=== PATIENT | female | born 1955 ===

== ENCOUNTER 2022-02-21 16:14 | Emergency (ER) | payer MEDICARE, SELFPAY ==
[2022-02-21] VITALS (16 sets, daily range): BP systolic 115–171; BP diastolic 67–121; PULSE 67–78; RESP 12–20; TEMP 36.6; O2SAT 97–100
--- NOTE | ~2022-02-21 | XR_ITS ---
EXAMINATION: XR chest 1V portable Exam Date/Time: 02/21/2022 16:20 CDT CLINICAL HISTORY: suspected CVA Comparison: None available. RESULT: Lines, tubes, and devices: None. Lungs and pleura: Senescent changes, otherwise clear. Cardiomediastinal silhouette: Possible hiatal hernia, otherwise unremarkable cardiomediastinal silho uette. Other: No acute osseous or upper abdominal finding. IMPRESSION: No acute cardiopulmonary process Reviewed, dictated and finalized at location K.
--- NOTE | ~2022-02-21 | CT_ITS ---
EXAMINATION: CT brain wo con DATE: 02/21/2022 16:22 INDICATION: suspected CVA seen for hemorrhagic stroke at outside institution on February 07, that appar ently worsened on the . Recent new dysarthria and right-sided symptoms. TECHNIQUE: Computed tomography (CT) of the head was performed without intravenous contrast. The mA wa s adjusted according to patient size. Iterative reconstruction technique was employed. The dose-lengt h product was 605.33 mGy-cm. COMPARISON: None FINDINGS: Ill-defined hyperdensity extending from the left thalamus superiorly along lateral ventricle. This hy podensity measures approximately 50 6HU. No extra-axial fluid collection. No hydrocephalus, mass, or herniation. Hypodensity extending from the left cerebral peduncle into the left thalamus and surrounding the hype rdensities described above. Unremarkable dural venous sinus attenuation. No acute osseous abnormality. The aerated spaces are clear. Mild atrophy and chronic white matter change. Intracranial arterial calcifications. IMPRESSION: Findings may represent subacute left thalamic hemorrhage with surrounding edema. No CT evidence of ac adenike large vessel infarct. Subtle extension of hemorrhage or edema/infarct is difficult to exclude wit hout prior imaging. Results discussed with Dr. Lebron by Dr. Scott telephonically at 4:20 PM on 02/21/2022. Reviewed, dictated and finalized at location K. IMPRESSION: Findings may represent subacute left thalamic hemorrhage with surrounding edema . No CT evidence of acute large vessel infarct. Subtle extension of hemorrhage or edema/infarct is difficult to exclude without prior imaging. Results discussed with Dr. Lebron by Dr. Scott telephonically at 4:20 PM on 2021.
--- NOTE | 2022-02-21 16:16 | ECG_ITS ---
Measurements Intervals [place] Rate: 70 P: 30 NC: 186 QRS: 1 QRSD: 121 T: 70 QT: 410 QTc: 444 Interpretive Statements SINUS RHYTHM INCOMPLETE LEFT BUNDLE BRANCH BLOCK CONSIDER INFERIOR INFARCT, AGE INDETERMINATE BASELINE ARTIFACT- I, III, AVR, AVL, AVF, V1-V2, V4-V6 ABNORMAL ECG Electronically Signed On 02-21-2022 16:36:25 CDT by Kam Gutierrez D.O.
--- NOTE | 2022-02-21 16:40 | ED.NEUROSD ---
HPI - Neuro Symptoms/Deficit General Chief Complaint: Suspected CVA Stated Complaint: slurred speech, increased R side weakness Time Seen by Provider: 02/21/22 16:33 Source: patient, EMS and RN notes reviewed Mode of arrival: EMS Limitations: no limitations History of Present Illness HPI Narrative: 66 years old -[place] female came to the emergency room from [facility] because of strokelike symptoms in the form of increased slurred speech and increased weakness of the right upper and right lower extremity. 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 Last time patient was doing okay at 2 PM today. Patient received muscle relaxant for muscle pain, within 30 minutes started having slurred speech and increased weakness of the right upper and right lower extremity. She denies any fever, chills, nausea, vomiting, chest pain, shortness of breath, headache. Related Data Home Medications Medication Instructions Recorded Confirmed amlodipine 10 mg PO DAILY 02/16/22 02/16/22 atorvastatin 20 mg PO DAILY 02/16/22 02/16/22 levothyroxine 100 mcg PO DAILY 02/16/22 02/16/22 levothyroxine 150 mcg PO DAILY 02/16/22 02/16/22 losartan 100 mg PO DAILY 02/16/22 02/16/22 potassium chloride 10 meq PO DAILY 02/16/22 02/16/22 Allergies Allergy/AdvReac Type Severity Reaction Status Date / Time ciprofloxacin [From Cipro] Allergy Swelling Verified 02/16/22 17:06 lisinopril Allergy Swelling Verified 02/16/22 17:06 quinapril Allergy Swelling Verified 02/16/22 17:06 Review of Systems Review of Systems: All systems reviewed & are unremarkable except as noted in HPI and below PMFSH Past Medical History Medical History Gastroesophageal reflux disease Hypertension associated with diabetes Hypothyroidism Obesity (BMI 35.0-39.9 without comorbidity) Obstructive sleep apnea Peptic ulcer disease Type 2 diabetes mellitus Surgical History Surgical History H/O gastric bypass Family History Family History Mother Diabetes mellitus Father Diabetes mellitus Mother Hypertension Sibling Hypertension Social History Social History Social History: patient lives alone in a 1 level house with a ramp entrance. Patient was independent without device. She has friends and family who can assist her intermittently Smoking status: Never smoker Exam Narrative: General appearance: Well-developed, well-nourished Skin: Normal color Head: Normocephalic, nontraumatic Eyes: Clear conjunctiva ENT: Oropharynx normal, ears normal, nose normal, left facial drooping Neck: Supple, nontender Chest and respiratory: Airway patent, no respiratory distress, no accessory muscle use Heart: Regular rate/rhythm Abdomen: Soft, nontender, no organomegaly, quiet bowel sounds Vascular: Normal peripheral pulses, normal capillary refill. Musculoskeletal: Weakness right upper and right lower extremity, Neurologic: Alert and oriented ?3, weakness right upper and right lower extremity, left facial drooping, slurred speech Course Course Emergency Course: Patient had history of hemorrhagic stroke with right hemiplegia February 07, we do not have old CAT scan for comparison, CAT scan today showed findings may represent subacute left thalamic hemorrhage with surrounding edema. Consultations Consultation #1: DR MCFADDEN, neurologist at [facility] who accepted patient transfer to Dr. Vogel Date: 02/21/22 Time: 18:22 Vi
[2022-02-21 16:43] LABS: Basophils Percent Auto 0.4 % (0.2-1.2); Eosinophils Absolute Auto 0.2 K/mm3 (0-0.3); Eosinophils Percent Auto 2.5 % (0-4.4); Hematocrit 37.2 % (37.0-47.0); Hemoglobin 11.3 g/dL (12.0-15.0); Immature Granulocyte Absolute 0.02 K/mm3 (0.00-0.031); Immature Granulocyte Percent A 0.2 % (0-0.5); Lymphocytes Absolute Auto 2.23 K/mm3 (0.9-3.2); Lymphocytes Percent Auto 23.1 % (18.3-44.2); Mean Corpuscular HGB Conc 30.4 g/dl (32-36); Mean Corpuscular Hemoglobin 25.4 pg (26-34); Mean Corpuscular Volume 83.6 fl (80-100); Mean Platelet Volume 10.2 fl (7.4-10.4); Monocytes Absolute Auto 0.9 K/mm3 (0.1-0.6); Monocytes Percent Auto 9.1 % (2.6-8.5); Neutrophils Absolute Auto 6.3 K/mm3 (1.3-6.7); Neutrophils Percent Auto 64.7 % (45.5-73.1); Platelet Count Result 355 k/mm3 (150-375); Red Blood Count 4.45 M/mm3 (4.2-5.4); White Blood Count 9.7 K/mm3 (4.5-10.0)
[2022-02-21 16:53] LABS: Alanine Aminotransferase 17 U/L (4-35); Albumin Level 4.3 g/dL (3.5-5.1); Alkaline Phosphatase 91 U/L (38-126); Anion Gap 8 mmol/L (8-16); Aspartate Amino Transferase 25 U/L (14-36); Bilirubin,Total 0.6 mg/dL (0.2-1.3); Blood Urea Nitrogen 34 mg/dL (7-17); Calcium 8.9 mg/dL (8.4-10.2); Carbon Dioxide 27 mmol/L (22-30); Chloride 101 mmol/L (98-107); Estimated CRCL calculation 60 ml/min; Estimated Glomerular Filt Rate 49; Glucose 132 mg/dL (65-110); Potassium 4.5 mmol/L (3.4-5.0); Sodium 136 mmol/L (137-145)
[2022-02-21 16:54] LABS: INR 1.1; Partial Thromboplastin Time 29.2 SECONDS (22.3-36.8); Prothrombin Time 13.3 Seconds (11.1-14.7)
[2022-02-21 17:05] LABS: Troponin I < 0.012 ng/mL (0.000-0.034)
[2022-02-21 17:35] LABS: Glucose Point of Care 149 mg/dl (65-105)
[2022-02-21 18:16] LABS: SARS-CoV-2 RNA PCR Negative
--- NOTE | 2022-02-21 19:24 | PC.NURSE ---
Assumed care of pt at this time.
--- NOTE | 2022-02-21 19:50 | PC.NURSE ---
Spoke to Lito at [facility] Xfer [facility]...informed of Covid Neg. result. They will call back with bed.
--- NOTE | 2022-02-21 19:59 | PC.NURSE ---
Spoke with Lito at [facility] transfer center. P[place] [id number] at [facility]. Number for nurse to nurse report is [phone].
[2022-02-22 00:06] VITALS: BP 120/61; PULSE 84; RESP 20; O2SAT 98
[2022-02-22 00:54] VITALS: BP 121/65; PULSE 88; RESP 18; O2SAT 97
[2022-02-22 02:08] VITALS: BP 104/54; PULSE 68; RESP 17; O2SAT 98
[2022-02-22 03:30] VITALS: BP 103/54; PULSE 76; RESP 16; O2SAT 98
[2022-02-22 05:30] VITALS: BP 109/59; PULSE 76; RESP 20; O2SAT 100
[2022-02-22 05:31] LABS: Glucose Point of Care 163 mg/dl (65-105)
== END 2022-02-22 06:02 | disposition short-term general hospital (02) ==
PROVIDERS: Emergency Provider Emergency Medicine
DX: I62.9 Nontraumatic intracranial hemorrhage, unspecified (principal); K21.9 Gastro-esophageal reflux disease without esophagitis; I10 Essential (primary) hypertension; E11.9 Type 2 diabetes mellitus without complications; E03.9 Hypothyroidism, unspecified; E66.9 Obesity, unspecified; G47.33 Obstructive sleep apnea (adult) (pediatric); Z20.822 Contact with and (suspected) exposure to COVID-19; Z88.8 Allergy status to other drugs, medicaments and biological substances; Z79.899 Other long term (current) drug therapy; Z68.35 Body mass index [BMI] 35.0-35.9, adult; Z98.84 Bariatric surgery status
CPT/HCPCS: 36415; 70450; 71045; 80053; 82948; 84484; 85025; 85610; 85730; 93005; 99285; C9803; U0003; U0005